=== PATIENT | male | born 1980 | race Caucasian/White ===

== ENCOUNTER 2024-07-11 19:50 | Inpatient (IN) ==
[2024-07-11 21:14] LABS: ABS Basophils 0.1 10^3/uL (0.0-0.1); ABS Eosinophils 0.2 10^3/uL (0.0-0.5); ABS Lymphocytes 2.6 10^3/uL (1.0-4.8); ABS Monocytes 0.9 10^3/uL (0.0-1.1); ABS Neutrophils 5.6 10^3/uL (1.5-7.6); Eosinophil % 2.6 %; Hematocrit 38.3 % (38-53); Hemoglobin 13.7 g/dL (13.2-16.3); Lymphocyte % 27.7 %; Mean Corpuscular Hemoglobin 29.7 pg (27-33); Mean Corpuscular Hgb Conc 35.7 g/dL (31-36); Mean Corpuscular Volume 83.3 fL (80-97); Mean Platelet Volume 6.2 fL (7.5-11.2); Platelet Count 382 10^3/uL (150-450); Red Cell Distribution Width 12.8 % (12-17); White Blood Count 9.5 10^3/uL (3.6-10.2)
[2024-07-11 21:18] LABS: Urine Appearance Clear; Urine Bilirubin Negative (Negative); Urine Blood Negative (Negative); Urine Color Colorless; Urine Glucose Negative (Negative); Urine Ketones Negative (Negative); Urine Nitrite Negative (Negative); Urine Protein Negative (Negative); Urine Specific Gravity 1.004 (1.002-1.030); Urine Urobilinogen Negative (Negative); Urine pH 6.5 (5.0-8.0)
[2024-07-11 21:31] LABS: ALT 49 U/L (7-52); AST 43 U/L (13-39); Acetaminophen < 15 mcg/mL; Albumin 4.1 g/dL (3.2-5.2); Albumin/Globulin Ratio 1.9 (1-3); Alcohol, S < 13 mg/dL (<13); Alkaline Phosphatase 79 U/L (35-149); Anion Gap 9 mmol/L (2-16); Blood Urea Nitrogen 13 mg/dL (6-24); CO2 Carbon Dioxide 28 mmol/L (22-32); Calcium 9.8 mg/dL (8.6-10.3); Chloride 98 mmol/L (101-111); Creatinine, Serum 0.85 mg/dL (0.67-1.17); Globulin 2.2 g/dL (2-4); Glucose 104 mg/dL (70-100); Potassium 3.5 mmol/L (3.5-5.0); Salicylate < 2.50 mg/dL (<30); Sodium 135 mmol/L (135-145); Total Bilirubin 0.8 mg/dL (0.2-1.0); Total Protein 6.3 g/dL (6.4-8.9)
[2024-07-11 21:33] LABS: Urine Benzodiazepine Screen None Detected (None Detect); Urine Cannabinoids Screen None Detected (None Detect); Urine Opiates Screen None Detected (None Detect)
[2024-07-11 21:46] LABS: TSH Ultra Thyroid Stim Horm 1.52 mcIU/mL (0.34-5.60)
[2024-07-11] MEDS ORDERED: Al Hydrox/Mg Hydrox/Simet LIQ 30 ML UDC PO PRN (22:35)
[2024-07-12] MEDS: Vitamin THERAPEUTIC TAB PO SCH (07:52)
[2024-07-12 08:40] LABS: HDL Cholesterol 47.5 mg/dL
[2024-07-12] MEDS ORDERED: Albuterol HFA INHALER 8 gm MDI INH PRN (12:01)
[2024-07-12] MEDS ORDERED: OLANZapine 5 mg TAB *ODT PO PRN (12:06)
[2024-07-12] MEDS: CMCS: Lamotrigine XR 200 mg TAB (NF) PO SCH (15:58)
[2024-07-12] MEDS ORDERED: Metformin ER 750 mg TAB (NF) PO SCH (21:00)
[2024-07-16 10:05] VITALS: BP 130/88
== END 2024-07-18 12:44 | disposition home or self-care (01) | DRG 885 ==
LOC: ED 19:50 → BSU 22:20 → EDHOLD 22:20 → BSU 22:32
PROVIDERS: ADMIT Psychiatry & Neurology Psychiatry; ATTEND Psychiatry & Neurology Psychiatry